=== PATIENT | male | born 1990 | race Two or more races ===

== ENCOUNTER 2020-10-23 21:59 | Emergency (ER) | payer MEDICAID ==
[~2020-10-23] VITALS: Ht 170.2 cm; Wt 68.0 kg
[2020-10-23] MEDS ORDERED: ZIPRASIDONE 20 MG INJ IM ONE ×2 (22:04→22:30)
[2020-10-23] MEDS ORDERED: SODIUM CHLORIDE 0.9% 1,000ML IVBOLUS ONE (22:30)
[2020-10-23 22:34] LABS: BASOPHILS % (AUTO) 0 % (0-1); EOSINOPHILS % (AUTO) 0 % (1-7); LYMPHOCYTES % (AUTO) 10 % (22-44); MEAN CORPUSCULAR HEMOGLOBIN 29.2 pg (27.5-34.5); MEAN CORPUSCULAR HGB CONC 33.6 g/dL (33.2-36.2); MEAN PLATELET VOLUME 7.1 fL (7.4-10.4); MONOCYTES % (AUTO) 5 % (2-9); NEUTROPHILS % (AUTO) 85 % (42-75); PLATELET COUNT 321 x10^3/uL (130-400); RED BLOOD COUNT 5.68 x10^6/uL (4.38-5.82); RED CELL DISTRIBUTION WIDTH 13.9 % (9.4-14.8)
[2020-10-23 22:35] LABS: MD NO
--- NOTE | 2020-10-23 22:37 | NUR ---
LATE ENTRY D/T PT CARE: PT BIB [facility] AFTER [place]ING F[place] [address], JUMPING AROUND AND ACTING LIKE A GORILLA OVER THE CENTER MEDIAN. PT HAS RUSHED SPEECH AND A FLIGHT OF IDEAS, SWITCHING BETWEEN HONDURAN AND AZERI REPEATEDLY. PT ALSO ASKING "TAKE ME TO THE [facility] PLEASE". PT UNABLE TO ANSWER QUESTIONS REGARDING HISTORY BUT IS ANOx4 AT THIS TIME. FOLLOWS COMMANDS BUT CONSTANT MOVING AND APPEARS ANXIOUS. ZOË DELGADO AT BS, PT MEDICATED PER DEC, URINE AND BLOOD SENT TO LAB, [facility]. PT PROVIDED WATER AND WARM BLANKETS FOR COMFORT. PLACED ON SPO2/BP/ECG MONITORING UPON ARRIVAL. PT IS TACHY ON MONITOR
[2020-10-23 22:46] LABS: ALANINE AMINOTRANSFERASE 30 U/L (12-78); ALBUMIN 4.2 g/dL (3.4-5.0); ANION GAP 7 mmol/L (5-15); CALCIUM 9.6 mg/dL (8.5-10.1); CHLORIDE 107 mmol/L (98-107); CREATININE 1.25 mg/dL (0.7-1.3)
[2020-10-23 22:48] LABS: AMPHETAMINE SCREEN, URINE Positive (Negative); BARBITURATE SCREEN, URINE Negative (Negative); BENZODIAZEPINE SCREEN, URINE Negative (Negative); CANNABINOID SCREEN, URINE Negative (Negative); COCAINE SCREEN, URINE Negative (Negative); METHADONE SCREEN, URINE Negative (Negative); OPIATE SCREEN, URINE Negative (Negative)
[2020-10-23 22:49] LABS: ALKALINE PHOSPHATASE 86 U/L (45-117); BILIRUBIN,TOTAL 0.9 mg/dL (0.2-1.0); SALICYLATE LEVEL < 1.7 mg/dL (2.8-20.0); TOTAL PROTEIN 8.4 g/dL (6.4-8.2)
--- NOTE | 2020-10-23 23:30 | NUR ---
LATE ENTRY D/T PT CARE: PT NAD, RESTING ON GURNEY, APPEARS COMFORTABLE, RESTING UNDER WARM BLANKETS, WCTM. BED IN LOWEST, RAILS ENGAGED, CALL LIGHT ON LAP.
--- NOTE | 2020-10-24 00:30 | NUR ---
LATE ENTRY D/T PT CARE: PT RESTING ON GURNEY, EYES CLOSED, EVEN AND UNLABORED RESPIRATIONS, APPEARS COMFORTABLE, GURNEY IN LOWEST POSITION, RAILS ENGAGED. WCTM.
--- NOTE | 2020-10-24 02:08 | NUR ---
PT RESTING ON BACK ON GURNEY, NAD, APPEARS COMFORTABLE, EVEN AND UNLABORED RESPIRATIONS, WCTM. L2K
--- NOTE | 2020-10-24 02:46 | NUR ---
report given to lexus armendariz, pt care transferred at this time.
--- NOTE | 2020-10-24 02:46 | NUR ---
2/2 belongings bags placed in locker. pt on L2K
--- NOTE | 2020-10-24 02:50 | NUR ---
PATIENT UP OUT OF BED, PACING ROOM, REDIRECTABLE TO SIT IN BED, STATES THAT HE IS HEARING AND SEEING OBJECTS AND PEOPLE THAT ARE NOT THERE. NAD, VSS, WILL CONTINUE TO MONITOR.
--- NOTE | 2020-10-24 03:36 | NUR ---
OFFERED PATIENT WATER, DECLINED OPPORTUNITY TO VOID, REDIRECTED TO STRETCHER TO REST. VSS, NAD, PATIENT IN SIGHT OF SITTER, CHEST RISE AND FALL VISIBLE FROM HALLWAY, WILL CONTINUE TO MONITOR.
--- NOTE | 2020-10-24 07:09 | NUR ---
REPORT TO CAMI GRANT, CARE TURNED OVER.
[2020-10-24 09:48] VITALS: BP 112/61
--- NOTE | 2020-10-24 09:48 | NUR ---
pt ate breakfast. room secure check, ssitter monitoring from count includes the [facility].
--- NOTE | 2020-10-24 09:51 | NUR ---
THROUGHPUT RN: PACKET FAXED TO [facility].
--- NOTE | 2020-10-24 09:53 | NUR ---
PT CALLING OUT "CHERY" AND SPEAKING INTERMITTENTLY IN [place]. PT VERBALIZES MISTRUST OF THIS RN. PT PROVIDED WITH WATER X2 PER REQUEST AND DENIES FURTHER NEEDS
[2020-10-24] MEDS ORDERED: OLANZAPINE 10 MG TABLET ONE (11:12)
[2020-10-24] MEDS ORDERED: LORazepam 1MG TABLET ONE (11:13)
[2020-10-24] MEDS ORDERED: DIPHENHYDRAMINE 50 MG/ML, 1ML ONE (11:17)
[2020-10-24] MEDS ORDERED: HALOPERIDOL 5 MG/ML ONE (11:17)
[2020-10-24] MEDS ORDERED: LORazepam 2 MG/ML, 1ML ONE (11:18)
[2020-10-24] MEDS ORDERED: LORazepam 2 MG/ML, 1ML IM PRN (11:30)
[2020-10-24] MEDS ORDERED: LORazepam 1MG TABLET PO ONE (11:30)
[2020-10-24] MEDS ORDERED: HALOPERIDOL 5 MG/ML IM PRN (11:30)
[2020-10-24] MEDS ORDERED: DIPHENHYDRAMINE 50 MG/ML, 1ML IM PRN (11:30)
[2020-10-24] MEDS ORDERED: OLANZAPINE 10 MG TABLET PO SCH (11:30)
--- NOTE | 2020-10-24 11:36 | NUR ---
pt yelling "ector" and banging glass window in room. security to to assist. pt medicated per orders. will cont to monitor
--- NOTE | 2020-10-24 12:06 | NUR ---
VISIBLE RISE AND FALL OF CHEST OBSERVED. PT BEING OBSERVED BY SITTER AND IS RESTING AT THIS TIME.
--- NOTE | 2020-10-24 12:20 | NUR ---
REPORT TO CAMI Ng RN.
--- NOTE | 2020-10-24 12:22 | NUR ---
pt resting on gurney. nad observed. resp. even and unlabored. will cont to monitor
--- NOTE | 2020-10-24 14:04 | NUR ---
THROUGHPUT RN: PER U THERE IS NO STAFF TO VERIFY PTS INSURANCE SO THEY ARE UNABLE TO ACCEPT TODAY.
--- NOTE | 2020-10-24 15:43 | NUR ---
pt slepping in gurney, resp even and unlabored. sitter monitoring for safety
--- NOTE | 2020-10-24 16:00 | NUR ---
per Kendal at [facility] they are full for adults and peds
[2020-10-24 16:42] LABS: MICROSCOPIC INDICATED
--- NOTE | 2020-10-24 16:57 | NUR ---
THROUGHPUT RN: PER CRYSTAL AT [facility], PRIOR TO ACCEPTING THEY REQUIRE A DETAILED H&P, UA, COVID TEST AND CXR.
--- NOTE | 2020-10-24 17:21 | NUR ---
pt arouses to touch. nad.
--- NOTE | 2020-10-24 17:39 | NUR ---
THROUGHPUT RN: PACKET REFAXED TO [facility] W/ PSYCHIATRIC CONSULT NOTE, UA, CXR AND NEGATIVE COVID REQUESTED BY FACILITY.
--- NOTE | 2020-10-24 18:20 | NUR ---
THROUGHPUT RN: ACCEPTING PHYSICIAN FROM [facility]
--- NOTE | 2020-10-24 18:26 | NUR ---
sbar to jayden ballard via telephone
--- NOTE | 2020-10-24 18:45 | NUR ---
THROUGHTPUT RN: YOSEF CONFIRMATION CODE [id number]. [facility] TO [employer] PT AT 1915.
== END 2020-10-24 19:19 ==
LOC: EDBD 21:59 → ED 10-24 09:36
DX: F20.1 Disorganized schizophrenia (principal); F15.150 Other stimulant abuse with stimulant-induced psychotic disorder with delusions; R00.0 Tachycardia, unspecified; Z20.822 Contact with and (suspected) exposure to COVID-19
CPT/HCPCS: 36415; 71045; 80053; 80299; 80307; 80320; 80329; 81001; 85025; 87635; 96360; 96372; 99285; J1200; J1630; J2060; J3486; J7030; G0480